=== PATIENT | female | born 1960 | race African-American/Black ===

== ENCOUNTER 2016-12-24 20:15 | Emergency (ER) | payer MEDICAID, OTHER ==
[~2016-12-24] VITALS: Ht 154.9 cm; Wt 72.6 kg
[2016-12-24 20:43] VITALS: BP 147/94
== END 2016-12-24 22:25 | disposition home or self-care (01) ==
LOC: ER 20:21
DX: M75.51 Bursitis of right shoulder (principal); I10 Essential (primary) hypertension; F17.200 Nicotine dependence, unspecified, uncomplicated
CPT/HCPCS: 99283; 99406; A4606; Z7610